=== PATIENT | male | born 1940 | race Caucasian/White ===

== ENCOUNTER → 2016-10-28 | Outpatient (CLI) | payer MEDICARE, BC ==
--- NOTE | 2016-10-29 09:41 | PN ---
DATE OF SERVICE: 10/28/2016 A 76-year-old gentleman who has been followed in the [facility] Center for treatment of obstructive sleep apnea-hypopnea syndrome. Patient continued to use his CPAP equipment every night for the whole night. [place] sleepiness scale is only 3. No snoring with the machine. I checked patient's CPAP unit. CPAP pressure is 12 cm of water. Ramp is 30 minutes starting at 6 cm of water usage. He is 26 out of 30 nights for more than 4 hours. Machine does not show apnea-hypopnea index. Patient lost weight from 245 pounds down to 235 pounds. MEDICATIONS: Lyrica, Indocin. During physical exam, a 76-year-old gentleman without distress. BP 155/70, HR 51, RR 16, height 66, weight 235.8, BMI 37.9, temperature 98.1, oxygen saturation from room air 97%. OROPHARYNX: Extremely low position of soft palate. ABDOMEN: Obese. NECK: Supple. No JVD, Thyroid is not palpable. LUNGS: Clear to percussion and to auscultation. Good air exchange. No wheezing or rhonchi. HEART: S1, S2, regular. No murmurs, gallops, or rubs. ABDOMEN: Soft and nontender. Bowel sounds are present. No organomegaly appreciated. EXTREMITIES: No clubbing or cyanosis. AEROSPACE MANAGER: Awake, alert, and oriented x3. Cranial nerves 2 to 7 intact. There is no fasciculation or atrophy noted. No focal deficits observed. IMPRESSION: 1. Obstructive sleep apnea, hypopnea syndrome on control with CPAP at the pressure of 12 cm of water. Patient demonstrated good compliance with treatment benefitting from treatment. 2. Obesity. Patient lost 10 pounds since previous visit. 3. Trigeminal neuralgia. 4. Back pain. 5. History of prostate CA. PLAN: 1. Continue treatment with CPAP every night for the whole night. 2. Continue losing weight. 3. Prescription for all necessary CPAP supplies including mask, tube filters. 4. No driving if feeling any sleepiness. 5. Sleep hygiene with time in bed for at least 8 hours. 6. Followup visit in 1 year or earlier if patient has any problems. Thank you for very much for allowing me to participate in the management of your patient. Sincerely, Dylan Madsen MD, PhD, FAASM Diplomat of [place] [employer], Sleep Medicine Board by [place] [employer] [place] [employer] Medical Direct of [facility] [place] [facility]
== END ==
LOC: SLEEP 13:54
PROVIDERS: ATTEND Internal Medicine
DX: G47.33 Obstructive sleep apnea (adult) (pediatric) (principal); E66.9 Obesity, unspecified; G50.0 Trigeminal neuralgia; Z85.46 Personal history of malignant neoplasm of prostate; Z79.1 Long term (current) use of non-steroidal anti-inflammatories (NSAID); Z79.899 Other long term (current) drug therapy

== ENCOUNTER → 2017-04-26 | Outpatient (CLI) | payer MEDICARE, BC, OTHER ==
--- NOTE | 2017-04-26 14:02 | US ---
EXAMINATION TYPE: US carotid duplex BILAT DATE OF EXAM: 04/26/2017 COMPARISON: NONE CLINICAL HISTORY: I65.23 Occlusion And Stenosis Of Bilateral Carotid. No hx of TIA or strokes, no HTN EXAM MEASUREMENTS: RIGHT: Peak Systolic Velocity (PSV) cm/sec ----- Right CCA: 79.9 ----- Right ICA: 71.2 ----- Right ECA: 74.7 ICA/CCA ratio: 0.9 RIGHT: End Diastole cm/sec ----- Right CCA: 14.5 ----- Right ICA: 18.0 ----- Right ECA: 0.0 LEFT: Peak Systolic Velocity (PSV) cm/sec ----- Left CCA: 78.7 ----- Left ICA: 77.3 ----- Left ECA: 90.8 ICA/CCA ratio: 1.0 LEFT: End Diastole cm/sec ----- Left CCA: 13.8 ----- Left ICA: 16.2 ----- Left ECA: 9.5 VERTEBRALS (direction of flow): Right Vertebral: Antegrade Left Vertebral: Antegrade Rhythm: Normal No elevated velocities, significant stenosis or wall thickening. Small amount of plaque seen in bila teral bulbs. IMPRESSION: Mild duran scale atheromatous plaquing of the carotid bulbs. No hemodynamically significa nt stenosis within either carotid arterial system.
== END | disposition home or self-care (01) ==
LOC: RADUSWWP 13:30
PROVIDERS: ATTEND Internal Medicine
DX: I65.23 Occlusion and stenosis of bilateral carotid arteries (principal)
CPT/HCPCS: 93880

== ENCOUNTER → 2017-11-10 | Outpatient (CLI) | payer MEDICARE, BC ==
--- NOTE | 2017-11-10 12:34 | SFUN ---
SLEEP CENTER FOLLOW UP NOTE DATE OF SERVICE: 11/10/2017 This 77-year-old gentleman has been followed in sleep center for treatment of obstructive sleep apnea-hypopnea syndrome. The patient continued to use his CPAP equipment every night for the whole night without any problems related to mask, humidification or CPAP unit. He is receiving his CPAP supplies in time. [place] Sleepiness Scale today is 5, which is normal. I checked his CPAP machine. CPAP pressure is 12 cm of water. A ramp started from 6 cm of water. Usage is 28/30 nights for more than 4 hours. Average usage per night is 6 hours and 42 minutes. No snoring with the machine. MEDICATIONS: Lyrica, Indocin. PHYSICAL EXAMINATION: GENERAL: During physical exam, patient in no distress. VITAL SIGNS: BP 141/69, HR around 50, RR 14, height 5 feet 6-1/2 inches, weight 230.8, BMI 36.5, temperature 97.5. HEENT: PERRLA, EOMI. Oxygen saturation at room air 94%. Oropharynx extremely low position of soft palate. HEART: S1, S2. Some bradycardia. EXTREMITIES: 1+ bilateral ankle edema. IMPRESSION: 1. Obstructive sleep apnea-hypopnea syndrome. The patient demonstrated great compliance with treatment benefitting from treatment. 2. Obesity. The patient has lost 5 pounds since previous visit about 1 year ago. 3. History of trigeminal neuralgia. 4. History of back pain. 5. History of prostate carcinoma. 6. Hyperlipidemia. 7. Status post appendectomy. 8. Status post back surgery. PLAN: 1. Continue treatment with CPAP every night for the whole night. 2. Patient's CPAP unit about 10-year-old. We discussed possibility to change the machine to the new one, but the patient believes that machine works well and there is no necessity to change it at the present time. 3. Follow up with primary care physician for some bradycardia. 4. Losing weight. 5. No driving if feeling sleepiness. 6. Sleep hygiene with regular time in bed for at least 8 hours. Thank you very much for allowing me to participate in management of your patient. Sincerely, Dylan Madsen MD, PhD, FAASM Diplomat of [place] [employer] Internal Medicine Chemical Tank Worker of [facility] [place] MMODL / IJN: [id number] /
== END | disposition home or self-care (01) ==
LOC: SLEEP 10:54
PROVIDERS: ATTEND Internal Medicine
DX: G47.33 Obstructive sleep apnea (adult) (pediatric) (principal); E78.5 Hyperlipidemia, unspecified; E66.9 Obesity, unspecified; Z68.36 Body mass index [BMI] 36.0-36.9, adult; Z90.89 Acquired absence of other organs; Z85.46 Personal history of malignant neoplasm of prostate; Z87.39 Personal history of other diseases of the musculoskeletal system and connective tissue; Z86.69 Personal history of other diseases of the nervous system and sense organs; Z79.1 Long term (current) use of non-steroidal anti-inflammatories (NSAID); Z98.890 Other specified postprocedural states

== ENCOUNTER → 2019-02-08 | Outpatient (CLI) | payer MEDICARE ==
--- NOTE | 2019-02-08 12:01 | PN ---
PROGRESS NOTE DATE OF SERVICE: 02/08/2019 A 78-year-old gentleman who has been followed in the Sleep Center for treatment of obstructive sleep apnea-hypopnea syndrome. Patient continued to use his CPAP equipment every night for the whole night without significant problems. No snoring with the machine. No sleepiness during the day. [place] Sleepiness Scale is 2. His CPAP unit is old, I checked it, CPAP pressure is 12 cm of water. Reading from the machine showed that patient is using equipment every night 30/30 nights over the month for more than 4 hours with average usage 7 hours and 6 minutes. Machine does not have information about apnea-hypopnea index. CPAP pressure is 12 cm of water. MEDICATIONS: Lyrica, Indocin. PHYSICAL EXAM: Patient in no distress. BP 138/72, HR 50, RR 16, height 5, 6-1/2, weight 233, body mass index 37, temperature 97.5, oxygen saturation at room air 95%. OROPHARYNX: Extremely low soft palate, Mallampati 4. ABDOMEN: Obese. Neck Supple, no JVD. Thyroid is not palpable. LUNGS Clear to percussion and to auscultation. Good air exchange. No wheezing or rhonchi. HEART S1, S2 regular. No murmurs, gallops, or rubs. EXTREMITIES No clubbing or cyanosis. BLOCKER AND CUTTER CONTACT LENS Awake, alert, and oriented X3. Cranial nerves 2 to 7 intact. There is no fasciculation or atrophy. noted. No focal deficits observed. IMPRESSION: 1. Obstructive sleep apnea-hypopnea syndrome. Patient demonstrated 100% compliance with treatment, benefitting from treatment. 2. Obesity. 3. Back pain, back problems. 4. History of prostate carcinoma. 5. Hyperlipidemia. 6. History of trigeminal neuralgia. 7. Status post appendectomy. 8. Status post back surgery. PLAN: 1. Prescription to replace CPAP unit. The patient will get CPAP machine with a pressure of 12 cm of water. 2. Followup visit in 1 month to check patient compliance with treatment and apnea- hypopnea index from the CPAP unit. 3. Sleep hygiene with regular time in bed for at least 7-1/2 hours. 4. Losing weight. 5. Sleep hygiene. 6. No driving if feeling sleepiness. Thank you very much for allowing me to participate in the management of your patient. Sincerely, Dylan Madsen MD, PhD, FAASM Diplomat of [place] [employer] [place] [employer] Medicine Metal Engineering Process Worker of [facility] [place] MMODL / BRYCEN: [id number] /
== END | disposition home or self-care (01) ==
LOC: SLEEP 09:50
PROVIDERS: ATTEND Internal Medicine
DX: G47.33 Obstructive sleep apnea (adult) (pediatric) (principal); M54.9 Dorsalgia, unspecified; M53.9 Dorsopathy, unspecified; E78.5 Hyperlipidemia, unspecified; E66.9 Obesity, unspecified; Z99.89 Dependence on other enabling machines and devices; Z79.899 Other long term (current) drug therapy; Z98.890 Other specified postprocedural states; Z85.46 Personal history of malignant neoplasm of prostate

== ENCOUNTER 2019-03-20 11:24 | Day surgery (SDC) | payer BC, MEDICARE, OTHER ==
[2019-03-16 10:55] VITALS: BMI 34.9
[~2019-03-20 11:24] MED LIST: DEXAMETHASONE SOD PHOSPHATE 10 MG/ML 1 ML VIAL IV ONE; HYDROmorphone 0.5 MG/0.5 ML SYRINGE IVP PRN; LACTATED RINGERS 1,000 ML IV SCH; LIDOCAINE 1% 20 ML VIAL (10MG/ML) FOR IV START INTRADERMA PRN; Pre Op ABX Message 1 EACH MISC MISCELLANE ONE
[2019-03-20 11:50] VITALS: TEMP 98.3
[2019-03-20] MEDS ORDERED: ONDANSETRON 4 MG/2 ML VIAL IVP ONE (12:01)
[2019-03-20] MEDS ORDERED: LIDOCAINE 2% INJ 20 MG/ML SQ ONE ×2 (12:03→12:24)
[2019-03-20] MEDS ORDERED: BUPIVACAINE (PF) 0.5% 30 ML VIAL SQ ONE ×2 (12:03→12:24)
[2019-03-20] MEDS ORDERED: PROPOFOL 10 MG/ML 20 ML VIAL IV ONE (12:07)
[2019-03-20 12:37] VITALS: RESP 16
[2019-03-20 13:29] VITALS: BP 141/75; PULSE 43
--- NOTE | 2019-03-23 23:45 | OP ---
OPERATIVE REPORT SURGERY DATE: 03/20/2019. PREOP DIAGNOSIS: Left carpal tunnel syndrome. POSTOP DIAGNOSIS: Left carpal tunnel syndrome. PROCEDURE PERFORMED: Open carpal tunnel release on the left wrist. DESCRIPTION OF PROCEDURE: The patient was taken to the Operative Suite where a sedation was administered by the Department of Anesthesia. I then performed a local injection along the line of the incision with a combination of Marcaine and Xylocaine both without epinephrine. The hand was then prepped and draped in the usual manner. The arm was elevated, exsanguinated and the cuff was inflated to 250 mm of mercury. A longitudinal incision was made along the ring finger ray distal to the wrist crease. Dissection was taken through the skin and subcutaneous tissue, initially sharp through the skin and then blunt through the subcutaneous tissue to ensure protection of any potential terminal transverse branches of the palmar cutaneous nerve. The palmar fascia was then incised under direct vision longitudinally exposing the transverse carpal ligament. The transverse carpal ligament also was incised under direct vision. The dissection was then continued proximally beneath the skin under direct vision to release the distal forearm fascia. The median nerve was then reflected free of tenosynovium to ensure no adhesions. The tourniquet was then released. The wound was then irrigated and the skin was closed with a running 5-0 nylon suture. A soft bulky dressing was applied including a volar plaster splint holding the wrist in a neutral slightly extended position. The patient was then taken to the Recovery Room in satisfactory condition. GUILHERMEL / IJN: [id number] /
== END 2019-03-20 13:35 | disposition home or self-care (01) ==
LOC: OR 11:24
PROVIDERS: ATTEND Orthopaedic Surgery Hand Surgery
DX: G56.03 Carpal tunnel syndrome, bilateral upper limbs (principal); M19.241 Secondary osteoarthritis, right hand; Z97.3 Presence of spectacles and contact lenses; Z87.891 Personal history of nicotine dependence; G47.33 Obstructive sleep apnea (adult) (pediatric); Z99.89 Dependence on other enabling machines and devices; Z79.899 Other long term (current) drug therapy; E66.9 Obesity, unspecified; Z68.36 Body mass index [BMI] 36.0-36.9, adult; Z85.46 Personal history of malignant neoplasm of prostate; Z92.3 Personal history of irradiation
CPT/HCPCS: 64721; J2001; J1100; J2405; J2704

== ENCOUNTER 2019-04-02 07:19 | Day surgery (SDC) | payer BC, MEDICARE, OTHER ==
[2019-03-29 12:39] VITALS: BMI 34.4
[~2019-04-02 07:19] MED LIST changes: +MIDAZOLAM 2 MG/2 ML VIAL IV PRN; +ONDANSETRON 4 MG/2 ML VIAL IVP ONE; +SCOPOLAMINE 1.5MG/72HR PATCH TRANSDERM ONE
[2019-04-02 07:41] VITALS: TEMP 97.2
[2019-04-02] MEDS ORDERED: LIDOCAINE 1% INJ 10MG/ML (20 ML MDV) SQ ONE (08:05)
[2019-04-02] MEDS ORDERED: BUPIVACAINE (PF) 0.5% 30 ML VIAL SQ ONE (08:05)
[2019-04-02] MEDS ORDERED: GLYCOPYRROLATE 0.2 MG/ML 2 ML VIAL ONE (08:54)
[2019-04-02] MEDS ORDERED: fentaNYL (PF) 50 MCG/ML 2 ML AMP ONE (08:54)
[2019-04-02] MEDS ORDERED: PROPOFOL 10 MG/ML 20 ML VIAL IV ONE (08:54)
[2019-04-02] MEDS ORDERED: MIDAZOLAM 2 MG/2 ML VIAL ONE (08:54)
[2019-04-02 09:20] VITALS: RESP 18
[2019-04-02 09:37] VITALS: BP 113/71; PULSE 75
--- NOTE | 2019-04-13 10:43 | OP ---
OPERATIVE REPORT DATE OF SURGERY: 04/02/2019. SURGEON: Alonso Leonard DO. PREOPERATIVE DIAGNOSIS: Right carpal tunnel syndrome. POSTOPERATIVE DIAGNOSIS: Right carpal tunnel syndrome. OPERATIVE PROCEDURE: Carpal tunnel release. DESCRIPTION OF PROCEDURE: The patient was taken to the Operative Suite where a sedation was administered by the Department of Anesthesia. I then performed a local injection along the line of the incision with a combination of Marcaine and Xylocaine both without epinephrine. The hand was then prepped and draped in the usual manner. The arm was elevated, exsanguinated and the cuff was inflated to 250 mm of mercury. A longitudinal incision was made along the ring finger ray distal to the wrist crease. Dissection was taken through the skin and subcutaneous tissue, initially sharp through the skin and then blunt through the subcutaneous tissue to ensure protection of any potential terminal transverse branches of the palmar cutaneous nerve. The palmar fascia was then incised under direct vision longitudinally exposing the transverse carpal ligament. The transverse carpal ligament also was incised under direct vision. The dissection was then continued proximally beneath the skin under direct vision to release the distal forearm fascia. The median nerve was then reflected free of tenosynovium to ensure no adhesions. The tourniquet was then released. The wound was then irrigated and the skin was closed with a running 5-0 nylon suture. A soft bulky dressing was applied including a volar plaster splint holding the wrist in a neutral slightly extended position. The patient was then taken to the Recovery Room in satisfactory condition. MMODL / IJN: [id number] /
== END 2019-04-02 10:12 | disposition home or self-care (01) ==
LOC: OR 07:19
PROVIDERS: ATTEND Orthopaedic Surgery Hand Surgery
DX: G56.03 Carpal tunnel syndrome, bilateral upper limbs (principal); M18.11 Unilateral primary osteoarthritis of first carpometacarpal joint, right hand; G47.33 Obstructive sleep apnea (adult) (pediatric); Z79.899 Other long term (current) drug therapy; Z90.49 Acquired absence of other specified parts of digestive tract; Z97.3 Presence of spectacles and contact lenses; Z87.891 Personal history of nicotine dependence; Z85.46 Personal history of malignant neoplasm of prostate; Z90.79 Acquired absence of other genital organ(s)
CPT/HCPCS: 64721; J2250; J1100; J2405; J2001; J3010; J2704

== ENCOUNTER → 2019-09-12 | Outpatient (CLI) | payer MEDICARE ==
[2019-09-12 10:28] LABS: Basophils % (A) 1 %; Eosinophils # (A) 0.2 k/uL (0-0.7); Eosinophils % (A) 5 %; HCT 43.3 % (39.0-53.0); HGB 13.9 gm/dL (13.0-17.5); Lymphocytes # (A) 0.9 k/uL (1.0-4.8); Lymphocytes % (A) 17 %; MCH 30.3 pg (25.0-35.0); MCHC 32.1 g/dL (31.0-37.0); MCV 94.3 fL (80.0-100.0); Mean Platelet Volume 7.4; Monocytes # (A) 0.3 k/uL (0-1.0); Monocytes % (A) 5 %; Neutrophils # (A) 3.7 k/uL (1.3-7.7); Neutrophils % (A) 70 %; Platelet Count 193 k/uL (150-450); RDW 12.7 % (11.5-15.5); WBC 5.3 k/uL (3.8-10.6)
[2019-09-12 15:29] LABS: African American GFR (CKD) 95.1 (60.0-200.0); Albumin 4.2 g/dL (3.80-4.90); Albumin/Globulin Ratio 1.91 (1.60-3.17); Anion Gap 5.9 mmol/L (4.00-12.00); Calcium 9.5 mg/dL (8.7-10.3); Carbon Dioxide 26.1 mmol/L (21.6-31.8); Chol/HDL Ratio 3.03; Globulin 2.2 g/dL (1.6-3.3); LDL Cholesterol,Calculated 59.6 mg/dL (0.0-131.0); Non-African American GFR(CKD) 82.1 (60.0-200.0); Potassium 4.4 mmol/L (3.5-5.5); Total Protein 6.4 g/dL (6.2-8.2); Uric Acid 5.8 mg/dL (3.7-8.7); VLDL Calculation 13.4 mg/dL (5.00-40.00)
== END | disposition home or self-care (01) ==
LOC: LABWHC1 09:25
PROVIDERS: ATTEND Internal Medicine
DX: E78.2 Mixed hyperlipidemia (principal); G50.0 Trigeminal neuralgia; M10.9 Gout, unspecified
CPT/HCPCS: 36415; 80053; 80061; 84443; 84550; 85025

== ENCOUNTER → 2020-09-10 | Outpatient (CLI) | payer MEDICARE ==
--- NOTE | 2020-09-10 15:31 | XR ---
EXAMINATION TYPE: XR cervical spine w flex/ext DATE OF EXAM: 09/10/2020 TECHNIQUE: Frontal, lateral, oblique, swimmers, and open mouth view of the cervical spine are obtaine d. 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 Atlantoaxial articulation is intact. On the swimmer's view C7-T1 is wel l visualized. No loss of vertebral body height to suggest acute compression fracture. There is multil evel intervertebral disc space narrowing involving C3-4, C5-6, C6-7 and C7-T1. No significant anterol isthesis. Prevertebral soft tissues are unremarkable. There is mild to moderate multilevel bilateral neural foraminal narrowing most prominent at C3-4, C4-5 and C5-6 and left C6-7. On flexion and extens ion views there is no significant evidence of visualized instability. IMPRESSION: 1. No left vertebral body height to suggest acute compression fracture. Multilevel degenerative cortez es as described above.
== END | disposition home or self-care (01) ==
LOC: RADXRMAIN 11:28
PROVIDERS: ATTEND Internal Medicine
DX: M47.812 Spondylosis without myelopathy or radiculopathy, cervical region (principal); M50.33 Other cervical disc degeneration, cervicothoracic region; M99.71 Connective tissue and disc stenosis of intervertebral foramina of cervical region
CPT/HCPCS: 72052

== ENCOUNTER 2020-10-01 06:30 | Day surgery (SDC) | payer MEDICARE ==
[2020-09-29 14:49] VITALS: BMI 34.4
[~2020-10-01 06:30] MED LIST changes: +ACETAMINOPHEN TAB 500 MG TAB PO PRN; -DEXAMETHASONE SOD PHOSPHATE 10 MG/ML 1 ML VIAL IV ONE; +HEPARIN SODIUM,PORCINE/PF 5,000 UNIT/0.5 ML SYRINGE SQ PRN; -HYDROmorphone 0.5 MG/0.5 ML SYRINGE IVP PRN; -LACTATED RINGERS 1,000 ML IV SCH; -LIDOCAINE 1% 20 ML VIAL (10MG/ML) FOR IV START INTRADERMA PRN; -MIDAZOLAM 2 MG/2 ML VIAL IV PRN; -ONDANSETRON 4 MG/2 ML VIAL IVP ONE; -SCOPOLAMINE 1.5MG/72HR PATCH TRANSDERM ONE
[2020-10-01 07:04] VITALS: RESP 16; TEMP 98.1
[2020-10-01] MEDS ORDERED: LACTATED RINGERS 1,000 ML IV ONE (07:10)
[2020-10-01] MEDS ORDERED: DEXAMETHASONE SOD PHOSPHATE 4 MG/ML 1 ML VIAL IVP ONE (07:16)
[2020-10-01] MEDS ORDERED: GLYCOPYRROLATE 0.2 MG/ML 2 ML VIAL ONE (07:45)
[2020-10-01] MEDS ORDERED: PROPOFOL 10 MG/ML 20 ML VIAL IV ONE (07:45)
[2020-10-01] MEDS ORDERED: MIDAZOLAM 2 MG/2 ML VIAL ONE (07:45)
[2020-10-01] MEDS ORDERED: fentaNYL (PF) 50 MCG/ML 2 ML AMP ONE (07:45)
[2020-10-01] MEDS ORDERED: SODIUM CHLORIDE 0.9% 50 ML with ceFAZolin 2,000 MG IV ONE ×2 (07:49)
[2020-10-01] MEDS ORDERED: LIDOCAINE 1%-EPI 1:100,000 20 ML VIAL SQ ONE (08:03)
[2020-10-01 08:43] VITALS: BP 132/72; PULSE 58
--- NOTE | 2020-10-01 09:57 | P.GSHP ---
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 Patient presents today for wide local excision Past Medical History Past Medical History: Cancer, Hyperlipidemia, Prostate Disorder, Sleep Apnea/CPAP/BIPAP Additional Past Medical History / Comment(s): prostate cancer- had brachytherapy 2012, tingling in 2 fingers left hand(carpal tunnel), constipation, skin cancer History of Any Multi-Drug Resistant Organisms: None Reported Past Surgical History: Appendectomy, Back Surgery, Orthopedic Surgery, Prostate Surgery Additional Past Surgical History / Comment(s): antonio carpal tunnel, skin cancer removed from left ear lobe, Past Anesthesia/Blood Transfusion Reactions: No Reported Reaction Smoking Status: Former smoker - Past Family History Father Family Medical History: Cancer Additional Family Medical History / Comment(s): testcular Brother(s) Family Medical History: Cancer Additional Family Medical History / Comment(s): oral, liver Medications and Allergies Home Medications Medication Instructions Recorded Confirmed Type Multivitamins, Thera [Multivitamin 1 tab PO DAILY 03/16/19 10/01/20 History (formulary)] Pregabalin [Lyrica] 100 mg PO BID 03/16/19 10/01/20 History Atorvastatin [Lipitor] 40 mg PO DAILY 03/29/19 10/01/20 History Indomethacin [Indocin ER] 75 mg PO DAILY 03/29/19 10/01/20 History Travoprost 1 drop LEFT EYE HS 09/29/20 10/01/20 History Allergies Allergy/AdvReac Type Severity Reaction Status Date / Time No Known Allergies Allergy Verified 10/01/20 06:49 Surgical - Exam Vital Signs Temp Pulse Resp BP Pulse Ox 98.1 F 50 L 16 157/68 97 10/01/20 06:48 10/01/20 06:48 10/01/20 06:48 10/01/20 06:48 10/01/20 06:48 - General well developed, well nourished - Eyes PERRL - ENT normal pinna - Neck no masses - Respiratory normal expansion - Cardiovascular Rhythm: regular - Abdomen Abdomen: soft, non tender - Integumentary 2 cm shave biopsy was carcinoma skin lesion located on the back just left of midline in the mid area Assessment and Plan Assessment: Squamous cell carcinoma back. We'll perform wide local excision
--- NOTE | 2020-10-01 09:59 | P.OP ---
Date of Procedure: 10/01/20 Preoperative Diagnosis: Squamous cell carcinoma back Postoperative Diagnosis: Squamous cell carcinoma back Procedure(s) Performed: Wide local excision of squamous cell carcinoma back Anesthesia: MAC Surgeon: Christoph Luna Estimated Blood Loss (ml): 3 Pathology: other (Back skin lesion) Condition: stable Disposition: PACU Description of Procedure: Patient's placed on the operative table in the lateral position. He received IV sedation. His back was prepped and draped usual sterile fashion. Elliptical skin incision was made around the skin lesion. The left cautery the specimen was dissected free and the subcu tissue divided. The specimen measured approximately 3 x 2 cm. A suture tag was placed on the cephalad portion of the specimen. The specimens of pathology. The skin was closed interrupted 3-0 nylon suture. Patient top she will was sent to recovery room stable condition.
== END 2020-10-01 09:11 | disposition home or self-care (01) ==
LOC: OR 06:30
PROVIDERS: ATTEND Surgery
DX: C44.529 Squamous cell carcinoma of skin of other part of trunk (principal); L82.1 Other seborrheic keratosis; E78.5 Hyperlipidemia, unspecified; G47.30 Sleep apnea, unspecified; Z87.891 Personal history of nicotine dependence; Z85.46 Personal history of malignant neoplasm of prostate; Z92.3 Personal history of irradiation; K59.00 Constipation, unspecified; Z90.89 Acquired absence of other organs; Z98.890 Other specified postprocedural states; Z86.69 Personal history of other diseases of the nervous system and sense organs; Z90.79 Acquired absence of other genital organ(s); Z80.43 Family history of malignant neoplasm of testis; Z80.0 Family history of malignant neoplasm of digestive organs; Z80.8 Family history of malignant neoplasm of other organs or systems; Z79.1 Long term (current) use of non-steroidal anti-inflammatories (NSAID); Z79.899 Other long term (current) drug therapy
CPT/HCPCS: 88305; 11606; J2250; J1100; J0690; J3010; J2704; J1644

== ENCOUNTER → 2020-10-08 | Outpatient (CLI) | payer MEDICARE ==
--- NOTE | 2020-10-08 13:49 | EST ---
EXERCISE STRESS DATE OF SERVICE: AGE: 80 SEX: M HT: @@ WT: @@ PROTOCOL: @@ STAGE: @@ DURATION OF EXERCISE: @@ HEART RATE REST: @@ BLOOD PRESSURE REST: @@ MAXIMUM HEART RATE ACHIEVED: @@ MAXIMUM BLOOD PRESSURE: @@ 85% MPHR: @@ 100% MPHR: @@ METS: @@ RESULTS: Baseline rhythm is a sinus mechanism, rate of 40, right bundle branch block, nonspecific ST-T wave changes. Baseline blood pressure 146/75 mmHg. Patient exercised on Vipin protocol for 5 minutes 30 seconds reaching peak rate of 149 beats per minute which is above his 100 percent maximum predicted heart rate. Peak blood pressure 208/79 mmHg. Test was terminated secondary to fatigue. There was no chest pain. Electrocardiograph monitoring revealed occasional PVCs. There was no evidence of diagnostic ischemic ST deviation. CONCLUSION: 1. Average exercise tolerance with no chest discomfort. 2. Occasional PVCs. 3. Nondiagnostic electrocardiograph stress testing secondary to baseline EKG abnormality. If clinically indicated, an imaging stress test will be helpful. MMODL / IJN: [id number] /
== END | disposition home or self-care (01) ==
LOC: RADNMMAIN 10:28
PROVIDERS: ATTEND Internal Medicine
DX: I49.3 Ventricular premature depolarization (principal)
CPT/HCPCS: 93017

== ENCOUNTER → 2020-11-04 | Outpatient (CLI) | payer MEDICARE ==
[~2020-11-04] MED LIST changes: -ACETAMINOPHEN TAB 500 MG TAB PO PRN; -HEPARIN SODIUM,PORCINE/PF 5,000 UNIT/0.5 ML SYRINGE SQ PRN; -Pre Op ABX Message 1 EACH MISC MISCELLANE ONE; +REGADENOSON 0.4 MG/5 ML SYRINGE IV PRN
--- NOTE | 2020-11-04 11:54 | NM ---
EXAMINATION TYPE: NM stress lexiscan cardiolite DATE OF EXAM: 11/04/2020 COMPARISON: NONE HISTORY: R94.39 TECHNIQUE: After the intravenous administration of 10.0 mCi Tc 99m Sestamibi - Cardiolite resting SP ECT images acquired 45 minutes post injection. The patient received 0.4mg Lexiscan, 25.5 mCi Tc 99m Sestamibi - Stress images obtained [address] injection FINDINGS: Review of stress and rest SPECT images demonstrates decreased uptake along the inferolateral left leighton tricle on stress as compared to rest imaging. Gated analysis shows normal wall motion with an estima sergio left ventricular ejection fraction of 55 %. IMPRESSION: Pharmacologically induced left ventricular myocardial ischemia. A Yellow level critical message alert has been initiated for Terell Gonzalez MD via the [facility] System on 11/04/2020 11:52 AM. This message alert has been sent to Terell Gonzalez MD vi a the preferences provided by the clinician for the receipt of Radiology Critical Findings. Message I D [id number].
--- NOTE | 2020-11-04 14:07 | P.STRESS ---
- Stress Test Note Stress Test Results/Findings: Exam Performed: NM stress lexiscan cardiolite Exam Date: 11/04/20 Reason for Exam: FAMILY HISTORY OF HEART DISEASE Height: 5 ft 7 in Weight: 102.058 kg Protocol: LEXISCAN Stage: NA Duration of Exercise: NA Resting Heart Rate: 47 Resting Blood Pressure: 132/69 Maximum Achieved Heart Rate: 71 Maximum Achieved Blood Pressure: 145/66 85% PMHR: 121 100% PMHR: 142 METS: NA Technologist Comment: Stress Test Results/Findings: Baseline 12-lead EKG shows sinus rhythm normal DE, right bundle branch block pattern Lexiscan infused per protocol No significant change in heart rate blood pressure No evidence for ischemia Nuclear portion will be reported separately
--- NOTE | 2020-11-05 09:03 | ECHOS ---
Stress Test Results/Findings: Exam Performed: NM stress lexiscan cardiolite Exam Date: 11/04/20 Reason for Exam: FAMILY HISTORY OF HEART DISEASE Height: 5 ft 7 in Weight: 102.058 kg Protocol: LEXISCAN Stage: NA Duration of Exercise: NA Resting Heart Rate: 47 Resting Blood Pressure: 132/69 Maximum Achieved Heart Rate: 71 Maximum Achieved Blood Pressure: 145/66 85% PMHR: 121 100% PMHR: 142 METS: NA Technologist Comment: Stress Test Results/Findings: Baseline 12-lead EKG shows sinus rhythm normal TN, right bundle branch block pattern Lexiscan infused per protocol No significant change in heart rate blood pressure No evidence for ischemia Nuclear portion will be reported separately MTDD
== END | disposition home or self-care (01) ==
LOC: RADNMMAIN 08:21
PROVIDERS: ATTEND Internal Medicine
DX: I25.9 Chronic ischemic heart disease, unspecified (principal)
CPT/HCPCS: 93017; 78452; A9500; J2785

== ENCOUNTER → 2020-11-21 | Outpatient (CLI) | payer MEDICARE ==
[2020-11-21 11:14] LABS: African American GFR (CKD) >90 (>60 ml/min/1.73 sqM); Anion Gap 8 mmol/L; Blood Urea Nitrogen 19 mg/dL (9-20); Carbon Dioxide 26 mmol/L (22-30); Chloride 106 mmol/L (98-107); Non-African American GFR(CKD) 86 (>60 ml/min/1.73 sqM); Potassium 4.3 mmol/L (3.5-5.1); Sodium 140 mmol/L (137-145)
[2020-11-21 12:24] LABS: HCT 40.6 % (39.0-53.0); HGB 14.3 gm/dL (13.0-17.5); MCH 33.3 pg (25.0-35.0); MCHC 35.1 g/dL (31.0-37.0); MCV 94.8 fL (80.0-100.0); Mean Platelet Volume 7.9; Platelet Count 177 k/uL (150-450); RBC 4.28 m/uL (4.30-5.90); RDW 12.8 % (11.5-15.5); WBC 7.1 k/uL (3.8-10.6)
== END | disposition home or self-care (01) ==
LOC: LABPAT 10:09
PROVIDERS: ATTEND Internal Medicine Interventional Cardiology
DX: Z01.812 Encounter for preprocedural laboratory examination (principal); R94.39 Abnormal result of other cardiovascular function study
CPT/HCPCS: 36415; 80051; 82565; 84520; 85027

== ENCOUNTER 2020-12-16 06:31 | Day surgery (SDC) | payer MEDICARE ==
[2020-12-09 15:58] VITALS: BMI 34.4
[2020-12-16] MEDS ORDERED: HEPARIN SODIUM,PORCINE 2,500 UNIT in SODIUM CHLORIDE 0.9% 250 ML IRRIGATION PRN (06:45)
[2020-12-16] MEDS ORDERED: SODIUM CHLORIDE 0.9% 1,000 ML in EMPTY BAG 1 BAG IV ONE (06:45)
[2020-12-16] MEDS ORDERED: ALPRAZolam 0.25 MG TAB PO PRN (06:45)
[2020-12-16] MEDS ORDERED: HEPARIN SODIUM,PORCINE 10,000 UNIT in SODIUM CHLORIDE 0.9% 1,000 ML IRRIGATION PRN (06:45)
[2020-12-16] MEDS ORDERED: ASPIRIN 325 MG TAB PO STA (06:45)
[2020-12-16] MEDS ORDERED: NITROGLYCERIN SL TABS 0.4 MG TAB SUBLINGUAL PRN (06:45)
[2020-12-16] MEDS ORDERED: ALPRAZolam 0.5 MG TAB PO PRN (06:45)
[2020-12-16] MEDS ORDERED: VERAPAMIL 2.5 MG/ML 2 ML AMP ONE (07:09)
[2020-12-16] MEDS ORDERED: LIDOCAINE 1% INJ 10MG/ML (20 ML MDV) ONE (07:10)
[2020-12-16] MEDS ORDERED: HEPARIN SODIUM 1,000 UN/ML (10ML VL) ONE (07:10)
[2020-12-16] MEDS ORDERED: fentaNYL (PF) 50 MCG/ML 2 ML AMP ONE (07:10)
[2020-12-16 07:25] VITALS: RESP 16; TEMP 98.2
[2020-12-16] MEDS ORDERED: fentaNYL (PF) 50 MCG/ML 2 ML AMP IV ONE (07:40)
[2020-12-16] MEDS ORDERED: LIDOCAINE 1% INJ 10MG/ML (20 ML MDV) SQ ONE (07:41)
[2020-12-16] MEDS ORDERED: VERAPAMIL SYRINGE (5 MG/10 ML) INTRAARTER ONE (07:42)
[2020-12-16] MEDS ORDERED: HEPARIN SODIUM 1,000 UN/ML (10ML VL) IV ONE (07:46)
[2020-12-16] MEDS ORDERED: IOPAMIDOL-370 125ML BTL INJ ONE (07:53)
[2020-12-16] MEDS ORDERED: RX INFO: IV CONTRAST WAS GIVEN 1 EACH MISC MISCELLANE PRN (08:07)
[2020-12-16] MEDS ORDERED: SODIUM CHLORIDE 0.9% 1,000 ML IV SCH (08:15)
[2020-12-16] MEDS ORDERED: MULTIVITAMINS, THERA 1 EACH TAB PO SCH (09:00)
[2020-12-16] MEDS ORDERED: ATORVASTATIN 40 MG TAB PO SCH (09:00)
--- NOTE | 2020-12-16 09:07 | LTR ---
DATE OF SERVICE: 12/16/[address] Gonzalez: I had the pleasure of performing cardiac catheterization on Mr. Christensen at [facility] on December 16 and a full copy of procedure note will be forwarded to you. In brief, he was found to have no evidence of obstructive coronary artery disease. Based on those findings, I recommend continued medical therapy with aggressive coronary risk factor modifications that have been initiated. Thank you again for allowing me to participate in his care. Please feel free to call if you have any questions. Sincerely, JESSICA / IJN: [id number] /
--- NOTE | 2020-12-16 09:07 | CC ---
CARDIAC CATHETERIZATION REPORT Mr. Christensen is a 80-year-old male with known history of hyperlipidemia, who recently underwent cardiac evaluation and underwent a myocardial perfusion imaging that revealed inferolateral wall ischemia. In view of that, recommendations were made regarding cardiac catheterization. The procedure as well as the risks and the complications were discussed with the patient who is in full understanding and agreement. PROCEDURE: Patient was brought to cleaner laboratory equipment in a fasting semisedated state. After receiving fentanyl and Benadryl and achieving moderate conscious sedated state, using Xylocaine anesthesia and Seldinger technique, a 6-Barbadian sheath was introduced in the right radial artery. Selective right and left coronary angiography performed using 5-Barbadian 3 and a half bend, right and left Judkin's catheter. Multiple views of the coronary artery including hemiaxial views obtained. Following that 5-Barbadian tight pigtail catheter was introduced into the left ventricle and pressures were calculated. Following that, catheter and sheath were removed. Hemostasis was obtained with deployment of TR band. There was no immediate complication. Patient was returned to his room in stable condition. There was no immediate complication. Of note, the patient received 5000 units of intravenous heparin as well as intra-arterial verapamil. FINDINGS: LEFT MAIN: This is a large-sized vessel, bifurcating into left circumflex, left anterior descending artery, left main coronary artery has no evidence of high-grade stenosis. LEFT ANTERIOR DESCENDING ARTERY: This is a large-sized vessel reaching towards the apex with a wraparound the apex segment giving rise to a proximal diagonal branch. The left anterior descending artery as well as branches have no evidence of obstructive coronary artery disease. LEFT CIRCUMFLEX: This is a large dominant vessel giving rise to a large proximal obtuse marginal branch, distally bifurcating into PDA and posterolateral segment and branches. The left circumflex as well as branches have no evidence of obstructive coronary artery disease. RIGHT CORONARY ARTERY: This is a small nondominant vessel giving rise to an acute marginal branch. The right coronary artery as well as branches have no evidence of obstructive coronary artery disease. LEFT VENTRICULOGRAM: Was not performed. HEMODYNAMICS: There was no gradient across the aortic valve. The ventricle end-diastolic pressure was 16-20 mmHg. CONCLUSION: 1. Normal coronary arteries. 2. Left dominance. RECOMMENDATIONS: In view of findings and anatomy, I recommend continued medical therapy with aggressive coronary risk modifications that have been initiated. Those findings and recommendations were discussed with the patient and his family who are in full understanding and agreement. Duration of sedation is 14 minutes. MMODL / IJN: [id number] /
[2020-12-16 18:16] VITALS: BP 158/76; PULSE 44
[2020-12-16] MEDS ORDERED: PREGABALIN 100 MG CAP PO SCH (21:00)
[2020-12-17] MEDS ORDERED: ASPIRIN 81 MG PO SCH (09:00)
== END 2020-12-16 12:35 | disposition home or self-care (01) ==
LOC: CATHCVL 06:31
PROVIDERS: ATTEND Internal Medicine Interventional Cardiology
DX: R94.39 Abnormal result of other cardiovascular function study (principal); E78.5 Hyperlipidemia, unspecified
CPT/HCPCS: 93458; C1894; C1769; J2001; J3010; J1644; Q9967

== ENCOUNTER → 2021-09-23 | Outpatient (CLI) | payer MEDICARE ==
--- NOTE | 2021-09-23 11:57 | US ---
EXAMINATION TYPE: US carotid duplex BILAT DATE OF EXAM: 09/23/2021 COMPARISON: 04/26/2017 CLINICAL HISTORY: I65.23 bilateral carotid artery stenosis. Previous smoker. Stenosis per order. EXAM MEASUREMENTS: RIGHT: Peak Systolic Velocity (PSV) cm/sec ----- Right CCA: 97.4 ----- Right ICA: 72.9 ----- Right ECA: 95.2 ICA/CCA ratio: 0.7 RIGHT: End Diastole cm/sec ----- Right CCA: 20.4 ----- Right ICA: 18.0 ----- Right ECA: 6.2 LEFT: Peak Systolic Velocity (PSV) cm/sec ----- Left CCA: 95.3 ----- Left ICA: 87.5 ----- Left ECA: 90.8 ICA/CCA ratio: 0.9 LEFT: End Diastole cm/sec ----- Left CCA: 19.8 ----- Left ICA: 14.9 ----- Left ECA: 11.7 VERTEBRALS (direction of flow): Right Vertebral: Antegrade Left Vertebral: Antegrade Rhythm: Normal Plaque seen within bilateral bulb and bilateral prox ICA. No elevated velocities at this time. IMPRESSION: 1. Bilateral atherosclerotic plaque with no significant hemodynamics stenosis. Criteria for Assigning % of Stenosis / Diameter reduction (Estimation based on the indirect measurements of the internal carotid artery velocities (ICA PSV). 1. Normal (no stenosis)=ICA PSV < 125 cm/s: ratio < 2.0: ICA EDV<40 cm/s. 2. Less than 50% stenosis=ICA PSV < 125 cm/s: ratio < 2.0: ICA EDV<40 cm/s. 3. 50 to 69% stenosis=ICA PSV of 125 to 230 cm/s: ration 2.0 ? 4.0: ICA EDV 40-100 cm/s. 4. Greater than 70% stenosis to near occlusion= ICA PSV > 230 cm/s: ratio > 4.0: ICA EDV > 100 cm/s. 5. Near occlusion= ICA PSV velocities may be low or undetectable: variable ratio and ICA EDV. 6. Total occlusion=unable to detect flow.
== END | disposition home or self-care (01) ==
LOC: RADUSWWP 10:47
PROVIDERS: ATTEND Internal Medicine
DX: I65.23 Occlusion and stenosis of bilateral carotid arteries (principal); Z87.891 Personal history of nicotine dependence
CPT/HCPCS: 93880

== ENCOUNTER 2021-11-11 09:01 | Day surgery (SDC) | payer MEDICARE ==
[2021-11-09 16:39] VITALS: BMI 34.4
[~2021-11-11 09:01] MED LIST changes: +LACTATED RINGERS 1,000 ML IV SCH; -REGADENOSON 0.4 MG/5 ML SYRINGE IV PRN
[2021-11-11 09:53] VITALS: RESP 18; TEMP 96.8
[2021-11-11] MEDS ORDERED: PROPOFOL 10 MG/ML 20 ML VIAL IV ONE (10:54)
[2021-11-11] MEDS ORDERED: GLYCOPYRROLATE 0.2 MG/ML 2 ML VIAL ONE (10:54)
[2021-11-11] MEDS ORDERED: LIDOCAINE 2% INJ 20 MG/ML (2 ML VIAL) ONE (10:54)
--- NOTE | 2021-11-11 11:04 | P.PCN ---
Date of Procedure: 11/11/21 Procedure(s) Performed: BRIEF HISTORY: Patient is a 81-year-old pleasant white male scheduled for an elective colonoscopy as a part of screening for colon rectal neoplasia. PROCEDURE PERFORMED: Colonoscopy. PREOPERATIVE DIAGNOSIS: Screening for colon cancer. IV sedation per Anesthesia. PROCEDURE: After informed consent was obtained, the patient, was brought into the endoscopy unit. IV sedation was administered by Anesthesia under continuous monitoring. Digital rectal examination was normal. Initially the Olympus CF-160 flexible video colonoscope was then inserted in the rectum, gradually advanced into the cecum without any difficulty. Careful examination was performed as the scope was gradually being withdrawn. Ileocecal valve and the appendiceal orifice were visualized and appeared normal. Prep was excellent. Mucosa of the cecum, ascending colon, transverse colon, descending colon, sigmoid colon, and rectum appeared normal. Scattered sigmoid diverticulosis. Retroflexion was performed in the rectum and weight 2 internal hemorrhoids were seen. The patient tolerated the procedure well. IMPRESSION: Normal-appearing colon from rectum to cecum with no evidence of colorectal neoplasia . Scattered sigmoid diverticulosis Grade 2 internal hemorrhoids RECOMMENDATIONS: Findings of this examination were discussed with the patient as well as his family.. He was advised to be a high-fiber diet and take fiber supplements a regular basis.
[2021-11-11 11:28] VITALS: BP 130/61; PULSE 49
== END 2021-11-11 11:46 | disposition home or self-care (01) ==
LOC: ORWHC2ENDO 09:01
PROVIDERS: ATTEND Internal Medicine Gastroenterology
DX: Z12.11 Encounter for screening for malignant neoplasm of colon (principal); K57.30 Diverticulosis of large intestine without perforation or abscess without bleeding; K64.1 Second degree hemorrhoids; E78.5 Hyperlipidemia, unspecified; G47.33 Obstructive sleep apnea (adult) (pediatric); N42.9 Disorder of prostate, unspecified; Z79.899 Other long term (current) drug therapy; Z87.891 Personal history of nicotine dependence; Z80.43 Family history of malignant neoplasm of testis; Z80.8 Family history of malignant neoplasm of other organs or systems
CPT/HCPCS: J2704; J2001; G0121; 45378

== ENCOUNTER → 2022-11-10 | Outpatient (CLI) | payer MEDICARE ==
--- NOTE | 2022-11-10 13:30 | US ---
EXAMINATION TYPE: US carotid duplex BILAT DATE OF EXAM: 11/10/2022 COMPARISON: US CLINICAL INDICATION: Male, 82 years old with history of I65.23 OCCLUSION AND STENOSIS OF BILATERAL CA ROTID; Stenosis TECHNIQUE: Carotid duplex ultrasound examination. Indirect Doppler criteria was utilized. FINDINGS: EXAM MEASUREMENTS: RIGHT: Peak Systolic Velocity (PSV) cm/sec ----- Right CCA: 75.4 ----- Right ICA: 79.8 ----- Right ECA: 97.4 ICA/CCA ratio: 1.1 RIGHT: End Diastole cm/sec ----- Right CCA: 13.8 ----- Right ICA: 25.9 ----- Right ECA: 11.7 LEFT: Peak Systolic Velocity (PSV) cm/sec ----- Left CCA: 78.7 ----- Left ICA: 83.6 ----- Left ECA: 100.4 ICA/CCA ratio: 1.1 LEFT: End Diastole cm/sec ----- Left CCA: 14.9 ----- Left ICA: 15.0 ----- Left ECA: 9.8 VERTEBRALS (direction of flow): Right Vertebral: Antegrade Left Vertebral: Antegrade Rhythm: Arrhythmia DECORATIVE ENGRAVER NOTES: No significant stenosis seen IMPRESSION: 1. No significant flow-limiting stenosis. Criteria for Assigning % of Stenosis / Diameter reduction (Estimation based on the indirect measurements of the internal carotid artery velocities (ICA PSV). 1. Normal (no stenosis)=ICA PSV < 125 cm/s: ratio < 2.0: ICA EDV<40 cm/s. 2. Less than 50% stenosis=ICA PSV < 125 cm/s: ratio < 2.0: ICA EDV<40 cm/s. 3. 50 to 69% stenosis=ICA PSV of 125 to 230 cm/s: ration 2.0 ? 4.0: ICA EDV 40-100 cm/s. 4. Greater than 70% stenosis to near occlusion= ICA PSV > 230 cm/s: ratio > 4.0: ICA EDV > 100 cm/s. 5. Near occlusion= ICA PSV velocities may be low or undetectable: variable ratio and ICA EDV. 6. Total occlusion=unable to detect flow.
== END | disposition home or self-care (01) ==
LOC: RADUSWWP 12:50
PROVIDERS: ATTEND Internal Medicine
DX: I65.23 Occlusion and stenosis of bilateral carotid arteries (principal); I34.0 Nonrheumatic mitral (valve) insufficiency
CPT/HCPCS: 93880

== ENCOUNTER → 2023-02-10 | Outpatient (CLI) | payer MEDICARE ==
--- NOTE | 2023-02-11 08:54 | US ---
EXAMINATION TYPE: US thyroid st tissue head/neck DATE OF EXAM: 02/10/2023 COMPARISON: CTa 01/12/2023 CLINICAL INDICATION: Male, 83 years old with history of E04.9 NONTOXIC GOITER, UNSPECIFIED; Goiter. GLAND SIZE: Right Lobe: 6.2 x 3.0 x 2.7 cm Overall Parenchyma: heterogenous Left Lobe: 4.3 x 1.7 x 1.8 cm Overall Parenchyma: heterogenous Isthmus Thickness: 0.49 cm NODULES RIGHT: # of nodules measured on right: 1 1. 3.4 X 3.5 x 2.8 cm, lower mid, Prior size: no prior TIRADS Score: 3 TIRADS Category 3: Mildly Suspicious Composition: Solid or almost completely solid (2 points). Echogenicity: Hyperechoic or isoechoic (1 point). Shape: Wider than tall (0 points). Margin: Smooth (0 points). Echogenic foci: None or large comet-tail artifacts (0 points) Recommendation: If >2.5cm: FNA; If >1.5cm: Follow up at 1,3,5 years LEFT: # of nodules measured on left: 1 less than 5 mm nodule seen, not fully measured. ISTHMUS: # of nodules measured in the isthmus: 0 Bilateral neck scanned, no evidence of lymphadenopathy. IMPRESSION: A right thyroid nodule meets criteria for biopsy if not already performed.
== END | disposition home or self-care (01) ==
LOC: RADUSWWP 14:17
PROVIDERS: ATTEND Internal Medicine
DX: E04.1 Nontoxic single thyroid nodule (principal)
CPT/HCPCS: 76536

== ENCOUNTER 2023-03-14 12:46 | Day surgery (SDC) | payer MEDICARE ==
[2023-03-14 13:56] VITALS: RESP 16; TEMP 98
[2023-03-14 14:53] VITALS: BP 153/77; PULSE 47
--- NOTE | 2023-03-14 15:46 | US ---
EXAMINATION TYPE: US FNA thyroid first lesion DATE OF EXAM: 03/14/2023 2:42 PM CLINICAL INDICATION:Male, 83 years old with history of E04.1 NONTOXIC SINGLE THYROID NODULE; , thyroi d nodule. COMPARISON: 02/10/2023 ATTENDING: Dr. Ihsan Cuellar PROCEDURE: Informed consent was obtained. The risks and benefits of the procedure were discussed with the patien t. The site was marked. Timeout procedure was performed Ultrasound imaging of the thyroid demonstrates right thyroid nodule measuring similar to prior 2022 The patient was prepped, draped in the usual sterile fashion, and locally anesthetized with 1% lidoca ine. Five fine needle aspiration were then performed with a 25 gauge needle. Samples were sent to [facility] pathology department for further analysis. Patient tolerated the procedure without incident and wa s sent home in stable condition. IMPRESSION: Successful ultrasound guided fine needle aspiration.
== END 2023-03-14 14:30 | disposition home or self-care (01) ==
LOC: RADPROMAIN 12:46
PROVIDERS: ATTEND Internal Medicine
DX: E04.1 Nontoxic single thyroid nodule (principal)
CPT/HCPCS: 10005; 88173; 88305

== ENCOUNTER → 2023-10-12 | Outpatient (CLI) | payer MEDICARE ==
[2023-10-12 15:08] VITALS: BP 152/67; PULSE 47; RESP 18; TEMP 97.5
--- NOTE | 2023-10-12 15:50 | P.SLEEP ---
History of Present Illness DATE: 10/12/2023 CONSULTATION/NEW PATIENT EVALUATION HISTORY OF PRESENT ILLNESS/SLEEP-WAKE EVALUATION: 83-year-old gentleman had b een evaluated in the sleep center for obstructive sleep apnea hypopnea syndrome. Last time I saw patient in January 2019 for treatment of obstructive sleep apnea hypopnea syndrome. Patient continued to use his CPAP equipment every night for the whole night. I checked CPAP unit. CPAP pressure is 12 cm of water. Usage is 100% of nights, average 7.3 hours per night. Leak is increased to 47 L/min. Apnea hypopnea index is 3.7 which is normal. SLEEP SCHEDULE: Usually sleep schedule from 11 PM to 7 AM 7 days a week. FALLING ASLEEP: No problems with falling asleep. DURING SLEEP: No snoring with CPAP. Patient sleeps through the night without awakenings. No history of hypnogogical hallucinations, sleep paralysis, or cataplexy. DURING THE DAY/WAKE STATE: No sleepiness during the day. [place] sleepiness scale is 3. Patient does not take naps. PAST MEDICAL HISTORY: Prostate cancer, hyperlipidemia, trigeminal neuralgia. PAST SURGICAL HISTORY: Radiation treatment for prostate cancer, appendectomy. MEDICATIONS: Please see below. SOCIAL HISTORY: Please see below. FAMILY HISTORY: Please see below. REVIEW OF SYSTEMS: No snoring on CPAP. No fevers. No double vision. No recent chest pain. No shortness of breath. No abdominal pain. No bleeding episodes. No blood in urine. No seizure episodes. PHYSICAL EXAMINATION: GENERAL: A pleasant patient without any distress. VITAL SIGNS: Please see below, weight 228.4 pounds, BMI 37.1. HEENT: PERRLA, EOMI. Evaluation of oropharynx showed tongue protrudes midline, low position of soft palate Mallampati 4. NECK: Supple. No JVD. Thyroid is not palpable. 17.5 inches in circumference. LUNGS: Clear to percussion and to auscultation. Good air exchange. No wheezing or rhonchi. HEART: S1, S2 regular. No murmurs, gallops or rubs. ABDOMEN: Soft and nontender. Bowel sounds are present. No organomegaly appreciated. EXTREMITIES: No clubbing or cyanosis. LOG BUNCHER: Awake, alert, and oriented x3. Cranial nerves 2 to 7 intact. There is no fasciculation or atrophy noted. No focal deficits observed. ASSESSMENT: 1. Obstructive sleep apnea hypopnea syndrome. Patient continued to use his CPAP equipment every night for the whole night. Normal respiration on CPAP, no snoring while using CPAP, no sleepiness. Extremely low position of soft palate Mallampati 4, wide neck 17.5 inches in circumference. 2. Mild obesity BMI 37.1. 3. History of prostate cancer, status postradiation treatment . 4. History of trigeminal neuralgia. 5 history of back problems. 6 . Status post appendectomy. 7. Hyperlipidemia. PLAN: 1. Patient will continue to use CPAP equipment every night for the whole night. 2. Prescription for all necessary CPAP supplies have been signed. 3. Preferable position during sleep on the side. 4. No driving if patient feels any sleepiness. Patient is aware of civil and criminal liability for unsafe driving. 5. Sleep hygiene with regular sleep time for at least 7.5-8 hours. 6. Watching and losing weight. 7. Follow-up visit in 6 months or earlier if patient has any problems. Thank you very much for referring this patient for consultation. Sincerely, Dylan Madsen MD, PhD, FAASM. Diplomat of [employer], Sleep Medicine Board by [employer] [facility] [place] Past Medical History Past Medical History: Cancer, Hyperlipidemia, Prostate Disorder, Sleep Apnea/CPAP/BIPAP Additional Past Medical History / Comment(s): prostate cancer with brachytherapy 2012, , occasional constipation, skin cancer, uses c-pap machine., trijeminal neuralgia, pressure in left eye. History of Any Multi-Drug Resistant Organisms: None Reported Past Surgical History: Appendectomy, Back Surgery, Heart Catheterization, Orthopedic Surgery, Prostate Surgery Additional Past Surgical History / Comment(s): antonio carpal tunnel, skin cancer removed from left ear , heart cath 2020 Past Anesthesia/Blood Transfusion Reactions: No Reported Reaction Past Psychological History: No Psychological Hx Reported Smoking Status: Former smoker Past Alcohol Use History: Occasional Additional Past Alcohol Use History / Comment(s): quit smoking 40 yrs ago, smoked on and off for 10 yrs Past Drug Use History: None Reported - Past Family History Father Family Medical History: Cancer Additional Family Medical History / Comment(s): testicular Brother(s) Family Medical History: Cancer Additional Family Medical History / Comment(s): 1 with oral cancer, 1 with liver cancer (mom had stroke and arthritis) Medications and Allergies Home Medications Medication Instructions Recorded Confirmed Type Multivitamins, Thera [Multivitamin 1 tab PO DAILY 03/16/19 10/12/23 History (formulary)] Pregabalin [Lyrica] 100 mg PO BID 03/16/19 10/12/23 History Atorvastatin [Lipitor] 40 mg PO DAILY 03/29/19 10/12/23 History Indomethacin [Indocin ER] 75 mg PO DAILY 03/29/19 10/12/23 History carBAMazepine [Carbatrol] 100 mg PO Q12HR #60 cap 01/12/23 10/12/23 Rx Aspirin [Adult Low Dose Aspirin EC] 81 mg PO DAILY 03/14/23 10/12/23 History Allergies Allergy/AdvReac Type Severity Reaction Status Date / Time No Known Allergies Allergy Verified 03/14/23 13:35 Physical Exam Vitals: Vital Signs Temp Pulse Resp BP Pulse Ox 10/12/23 15:06 97.5 F L 47 L 18 152/67 94 L Intake and Output 10/12/23 10/12/23 10/12/23 06:59 14:59 22:59 Other: Weight 103.532 kg Sleep Note - Sleep Data ESS Total: 3 - Sleep Note Sleep Note: Temperature: 97.5 F Pulse Rate: 47 Respiratory Rate: 18 Blood Pressure: 152/67 SpO2: 94 Height: 5 ft 5.7 in Weight: 103.532 kg BMI: Neck Circumference: 17.5
== END ==
LOC: 3 N SLEEP 14:38
PROVIDERS: ATTEND Internal Medicine
DX: G47.33 Obstructive sleep apnea (adult) (pediatric) (principal); E66.9 Obesity, unspecified; E78.5 Hyperlipidemia, unspecified; Z98.890 Other specified postprocedural states; Z90.49 Acquired absence of other specified parts of digestive tract; Z87.39 Personal history of other diseases of the musculoskeletal system and connective tissue; Z92.3 Personal history of irradiation; Z85.46 Personal history of malignant neoplasm of prostate; Z68.37 Body mass index [BMI] 37.0-37.9, adult; Z99.89 Dependence on other enabling machines and devices; Z86.69 Personal history of other diseases of the nervous system and sense organs; Z87.891 Personal history of nicotine dependence
CPT/HCPCS: 99211

== ENCOUNTER → 2023-12-27 | Outpatient (CLI) | payer MEDICARE ==
[2023-12-27 16:54] LABS: Basophils # (A) 0.02 X 10*3/uL (0.00-0.10); Basophils % (A) 0.4 %; Eosinophils # (A) 0.29 X 10*3/uL (0.04-0.35); Eosinophils % (A) 6.3 %; HCT 41.2 % (39.6-50.0); HGB 13.7 g/dL (13.0-17.0); Lymphocytes # (A) 0.82 X 10*3/uL (0.90-5.00); Lymphocytes % (A) 17.8 %; MCH 32.5 pg (27.0-32.0); MCHC 33.3 g/dL (32.0-37.0); MCV 97.6 FL (80.0-97.0); Mean Platelet Volume 10.4 FL (9.5-12.2); Monocytes # (A) 0.38 X 10*3/uL (0.20-1.00); Monocytes % (A) 8.2 %; NRBC Per 100 WBC 0 X 10*3/uL (0.00-0.01); Neutrophils # (A) 3.08 X 10*3/uL (1.80-7.70); Neutrophils % (A) 66.9 %; Platelet Count 162 X 10*3/uL (140-440); RBC 4.22 X 10*6/uL (4.40-5.60); RDW 12.8 % (11.5-14.5); WBC 4.61 X 10*3/uL (4.50-10.00)
[2023-12-27 17:05] LABS: ALT 40 U/L (10-49); AST 29 U/L (14-35); Albumin 4.2 g/dL (3.8-4.9); Alkaline Phosphatase 69 U/L (41-126); BUN/Creat Ratio 20.44 Ratio (12.00-20.00); Blood Urea Nitrogen 18.4 mg/dL (9.0-27.0); Calcium 9.3 mg/dL (8.7-10.3); Carbon Dioxide 25.5 mmol/L (21.6-31.8); Chloride 106 mmol/L (96-109); Globulin 2.1 g/dL (1.6-3.3); Glucose 91 mg/dL (70-110); Potassium 4.6 mmol/L (3.5-5.5); Sodium 141 mmol/L (135-145); Total Bilirubin 0.4 mg/dL (0.3-1.2); Total Protein 6.3 g/dL (6.2-8.2)
[2023-12-27 20:18] LABS: Carbamazepine (Tegretol) 6.7 UG/ML (4.0-12.0)
== END | disposition home or self-care (01) ==
LOC: LABWHC1 08:19
PROVIDERS: ATTEND Psychiatry & Neurology Neurology
DX: G50.0 Trigeminal neuralgia
CPT/HCPCS: 36415; 80053; 80156; 85025

== ENCOUNTER → 2024-04-04 | Outpatient (CLI) | payer MEDICARE ==
[2024-04-04 13:51] VITALS: BP 165/64; PULSE 50; RESP 16; TEMP 97.6
--- NOTE | 2024-04-04 14:08 | P.PROGSL ---
Subjective DATE: 04/04/2024 FOLLOW UP VISIT. Patient with obstructive sleep apnea hypopnea syndrome return to sleep center for follow-up visit. Information from previous visit have been reviewed. Patient is using PAP equipment every night for the whole night, getting PAP supplies in time. The patient does not have significant problems with the mask, PAP unit and humidification. [place] sleepiness scale is 1, which is perfect. I checked information from PAP unit. PAP unit pressure 12 cm H2O. Usage is 100% for more then 4 hours, average 7.5 hours per night. Leak is increased to 37 l/m. Apnea Hypopnea Index is 3.1, which is normal. MEDICATIONS have been reviewed, please see below. During physical exam: GENERAL: A pleasant patient without any distress. VITAL SIGNS: Please see below, weight is 230 lbs. HEENT: PERRLA, EOMI.low position of soft palate, Mallapati 4 . NECK: Supple. No JVD. LUNGS: Clear to percussion and to auscultation. Good air exchange. No wheezing or rhonchi. HEART: S1, S2 bradycardia. ABDOMEN: Soft and nontender. Slightly obese EXTREMITIES: No clubbing or cyanosis. VENEER JOINTER RETURNER: Awake, alert, and oriented x3. No focal deficit. Impressions: 1. Obstructive sleep apnea-hypopnea syndrome. Patient demonstrated great compliance with treatment, benefiting from treatment. 2. Mild obesity, BMI 37.6. 3. History of prostate cancer, status post radiation treatment. 4. History of trigeminal neuralgia. 5. Hyperlipidemia. 6. History of back problems. 7. Status post appendectomy. Plan: 1. Continue using PAP equipment every night for the whole night. 2. Sleep hygiene with regular time in bed for at least 7.5-8 hours 3. PAP unit should stay lower then position of the head. 4. Advised patient to remove all remaining water from humidifier canister daily and make it dry after each usage. Refill canister with fresh distilled water before each usage. 5. Watching and losing weight. 6. Precautions related to driving. No driving if feel any sleepiness. 7. I will maintain prescription for PAP supplies including mask, tube, filters. 8. Follow up visit in 6 months or earlier if patient has any problems. Thank you very much for allowing me to participate in the management of your patient. Dylan Madsen MD, PhD, FAASM. Diplomat of [employer] [employer], Sleep Medicine Board by [employer] [facility] [place] Objective - Vital Signs Vital Signs: Vital Signs Temp 97.6 F 04/04/24 13:50 Pulse 50 L 04/04/24 13:50 Resp 16 04/04/24 13:50 BP 165/64 04/04/24 13:50 Pulse Ox 97 04/04/24 13:50 FiO2 Intake & Output 04/03/24 04/04/24 04/04/24 18:59 06:59 18:59 Weight 104.326 kg Home Medications: Home Medications Medication Instructions Recorded Confirmed Type Multivitamins, Thera [Multivitamin 1 tab PO DAILY 03/16/19 04/04/24 History (formulary)] Pregabalin [Lyrica] 100 mg PO BID 03/16/19 04/04/24 History Atorvastatin [Lipitor] 40 mg PO DAILY 03/29/19 04/04/24 History Indomethacin [Indocin ER] 75 mg PO DAILY 03/29/19 04/04/24 History carBAMazepine [Carbatrol] 100 mg PO Q12HR #60 cap 01/12/23 04/04/24 Rx Aspirin [Adult Low Dose Aspirin EC] 81 mg PO DAILY 03/14/23 04/04/24 History Travoprost [Travoprost 0.004%] 2.5 ml OP DAILY 04/04/24 04/04/24 History
== END ==
LOC: 3 N SLEEP 13:18
PROVIDERS: ATTEND Internal Medicine
DX: G47.33 Obstructive sleep apnea (adult) (pediatric) (principal); E66.9 Obesity, unspecified; Z68.37 Body mass index [BMI] 37.0-37.9, adult; E78.5 Hyperlipidemia, unspecified; Z98.890 Other specified postprocedural states; Z99.89 Dependence on other enabling machines and devices; Z87.891 Personal history of nicotine dependence; Z85.46 Personal history of malignant neoplasm of prostate
CPT/HCPCS: 99212